=== PATIENT | female | born 1980 | race Caucasian/White ===

== ENCOUNTER 2021-04-27 22:49 | Emergency (ER) | payer OTHER | END 2021-04-27 23:40 | disposition home or self-care (01) | LOC: NAV ERS 22:49 | DX: S09.90XA Unspecified injury of head, initial encounter (principal); W22.8XXA Striking against or struck by other objects, initial encounter; Z87.19 Personal history of other diseases of the digestive system; Z79.899 Other long term (current) drug therapy | CPT/HCPCS: 99283 ==

== ENCOUNTER 2022-02-27 12:54 | Emergency (ER) | payer OTHER | END 2022-02-27 13:35 | disposition home or self-care (01) | LOC: NAV ERS 12:54 | DX: J02.9 Acute pharyngitis, unspecified (principal) | CPT/HCPCS: 99282 ==